=== PATIENT | male | born 1955 | race Caucasian/White ===

== ENCOUNTER → 2017-12-23 16:08 | Outpatient (CLI) | payer MEDICAID | END | disposition home or self-care (01) | LOC: D.RAD 10:15 | DX: R05 Cough (principal) ==

== ENCOUNTER 2018-03-10 12:27 | Inpatient (IN) | payer MEDICAID ==
[~2018-03-10] VITALS: Ht 188 cm; Wt 95.7 kg
--- NOTE | ~2018-03-10 | OP ---
PATIENT NAME: LIZZY SIMPSON MEDICAL RECORD: [id number] :57 LOCATION:[facility] D.CV07 ADMISSION DATE:03/15/18 SURGEON: RILEY ESPARZA MD DATE OF OPERATION: 03/15/2018 SURGEON: Riley Esparza MD ANESTHESIA: General endotracheal, Dr. Stearns and Dr. Willett. OPERATIONS PERFORMED: 1. Right thoracotomy and right upper lobe resection. 2. Right radical mediastinal lymphadenectomy. 3. Flexible fiberoptic bronchoscopy. PREOPERATIVE DIAGNOSIS: Neuroendocrine carcinoma, right upper lobe. POSTOPERATIVE DIAGNOSES: Neuroendocrine carcinoma, right upper lobe. An 8-mm tumor in the right upper lobe. There was also lymphadenopathy with calcification probably due to old histoplasmosis versus sarcoidosis. INDICATION FOR OPERATIONS: Neuroendocrine tumor, right upper lobe. FINDINGS OF THE OPERATION: 1. Tumor, right upper lobe. 2. Mediastinal lymphadenopathy. 3. Benign flexible fiberoptic bronchoscopy. ESTIMATED BLOOD LOSS: 150 mL. DESCRIPTION OF PROCEDURE: After informed consent, adequate preoperative medication evaluation, the patient was brought to the operating room, placed on the table in the supine position. The patient underwent flexible fiberoptic bronchoscopy and placement of a double-lumen tube. The patient was then turned in a left lateral decubitus position, protecting the pressure points and neurologic structures. The right chest was then prepped and draped in a sterile field, utilizing Betadine scrub, alcohol, and Betadine solution. A Betadine-impregnated drape was also used. A small right posterolateral thoracotomy incision was made and dissection carried down to the fascia. Hemostasis maintained with electrocautery. Fifth interspace was identified and opened. The chest was examined. There was immediate Ad lymphadenopathy with multiple large nodes. The tumor in the right upper lobe was not palpable. The fissure was then developed at the confluence of the minor and major fissure. Dissection carried down to a very large lymph node. Dissection was then carried more medially and the edge of the pulmonary artery identified. Attention was then turned toward the superior hilum. The hilum was incised anteriorly, superiorly and posteriorly. The pulmonary vein to the right upper lobe was then dissected free of surrounding structures and divided with an endovascular TACOS stapler. The middle and upper lobe vein was identified. The upper lobe tributaries were identified and the vein divided with a TACOS stapler. Attention was then turned towards the posterior fissure. This was developed with a TACOS stapler. The same was performed in between the middle and upper OPERATIVE REPORT [id number] LIZZY SIMPSON lobe. Dissection of the hilum was completed tracing the pulmonary artery into the middle and lower lobe. Attention was then turned posteriorly and the bronchus dissected to the upper lobe. The large lymph node in the hilum was dissected off the pulmonary artery and sent to pathology. The fissures were then completed anteriorly and posteriorly. The bronchus was then divided with an Endo-TACOS stapler after testing for inflation of the middle and lower lobes. The pathology returned tumor in the right upper lobe. The lymph nodes were benign with granulomas. Chest was irrigated with copious amounts of water and normal saline. The lymph node dissection was then carried out from the thoracic inlet at level 3 nodes. The level 4 nodes were removed behind the superior vena cava and paratracheally. The level 7 nodes were then dissected free as were 8 and 9. The chest was irrigated and hemostasis assured and two #36 chest tubes were placed, one anteriorly and superiorly, one posteriorly and inferiorly. Chest was again irrigated. Instrument and sponge counts were correct times 2. Chest closed in layers utilizing #2 Vicryl pericostal sutures, #1 Vicryl on the latissimus dorsi, 2-0 Vicryl on the subcutaneous tissue, and skin approximated with 3-0 subcuticular Vicryl. Sterile dressings were applied. The patient turned in the supine position and the endotracheal tube exchanged for a single-lumen tube. The patient underwent flexible fiberoptic bronchoscopy with no endobronchial bleeding and good closure of the stump with no narrowing of the bronchus intermedius. The patient tolerated the procedure well and was transferred to CV ICU in satisfactory condition. TRANSINT:[id number] Voice Confirmation ID: [id number] DOCUMENT ID: [id number] RILEY ESPARZA MD at 1234 CC: [id number] DICTATION DATE: 03/15/181908 RADIO REPORTER: 03/16/18 0309 ADM IN [place] [id number] [place] [id number]
--- NOTE | ~2018-03-10 | HP ---
PATIENT: LIZZY SIMPSON MEDICAL RECORD: [id number] ACCOUNT: [id number] LOCATION:[facility] D.CV07 : 57 ADMISSION DATE: 03/15/18 PCP: URBAN ESPARZA MD HISTORY AND PHYSICAL EXAMINATION NameLIZZY SIMPSON (62yo, M) ID# [id number]. Date/Time03/10/2018 11:08DFUVG26 1955Service Dept.[facility] ClinicProviderEDNEIL ESPARZA MDInsuranceMed Primary: [place] Insurance # : [id number] Employer Name : RETIRED Prescription: CMX - Member is eligible. Prescription: [employer] - Member is eligible. Chief Complaint Lung cancer Evaluate for pulmonary resection- RUL Patient's Care Team Referring Provider: ADAN LUO MD: [address] [place] [address], , Web Operations Lead: IRENE PERRY MD: [address] [place] [address], , Patient's Pharmacies [facility] [address], [facility] [address], , Vitals BP:148/78 sitting R arm 03/10/2018 11:18 am 150/80 sitting L arm 03/10/2018 11:18 amHR:62/reg 03/10/2018 11:18 amHt:6 ft 2 in 03/10/2018 11:15 amWt:215 lbs 03/10/2018 11:15 amBMI:27.6 03/10/2018 11:15 amAllergies Reviewed Allergies NKDAMedications Reviewed Medications amLODIPine 5 mg fpuymc08/28/18 filledCaremarkbenzonatate 200 mg jlilmgj98/02/18 filledCaremarkCarafate 100 mg/mL oral pwvyvhkqiz37/14/18 filledCaremarkcloNIDine HCl 0.2 mg pyxgul80/03/18 filledCaremarkcyclobenzaprine 10 mg iskusk99/03/18 filledCaremarkdoxycycline hyclate 100 mg cdessyq92/14/18 filledCaremarkFlucelvax Quad [id number] (PF) 60 mcg (15 mcg x 4)/0.5 mL IM syringe ADM 0.5ML IM UTD08/04/17 filledCaremarkgabapentin 600 mg gwqspe96/03/18 filledCaremarklevoFLOXacin 500 mg /25/18 filledCaremarkolmesartan 40 mg-hydrochlorothiazide 25 mg ndrmyk43/28/18 filledCaremarkpantoprazole 40 mg tablet,delayed onaykzb75/28/18 filledCaremarkpotassium chloride ER 20 mEq tablet,extended release(part/cryst)02/10/18 filledCaremarkpredniSONE 20 mg wtqokw89/25/18 filledCaremarkpromethazine 6.25 mg-codeine 10 mg/5 mL syrup01/23/18 filledCaremarkProblems Reviewed Problems Malignant tumor of lung, Right Fatigue Family History Reviewed Family History Father- Pulmonary emphysemaMother- Cardiac pacemaker in situSocial History Reviewed Social History Cardiology and General Family history of heart disease?: N Smoking Status: Former smoker (Notes: QUIT 21 YEARS AGO) HISTORY AND PHYSICAL [id number] LIZZY SIMPSON Non-smoker High blood pressure: Y Exercise level: Occasional Diabetes: N Alcohol intake: Occasional Diet: Regular Occupation: MOTEL KEEPER Marital status: Chewing tobacco: (Notes: FORMER) Guns present in home: Y Surgical History Reviewed Surgical History GALLBLADDER REMOVAL OF MELANOMA FROM NOSE AND BACK Past Medical History Reviewed Past Medical History Cancer: Y - MELANOMA BACK/NOSE High Blood Pressure: Y Join t Pain or Swelling: Y Shortness of Breath: Y Notes: CHRONIC FATIGUE Documents for Discussion Discussed the following documents: NM, WHOLE BODY SCAN - 03/09/18 Notes - normal scan PATHOLOGY STUDY - 02/23/18 Notes - RUL PULM NODULE CT GUIDED NEEDLE BIOPSY (PROC) - 02/23/18 PET, SKULL BASE TO MID-THIGH - 01/27/18 Notes - nneuroendocrine tumor right upper lobe Questionable mediastinal lymphadenopathy CT, CHEST, W/O CONTRAST - 01/09/18 Notes - small lesion right upper lobe carcinoid tumor ONCOLOGY CONSULT NOTE - ADAN LUO MD - 03/02/18 ONCOLOGY CONSULT NOTE - ADAN LUO MD - 03/02/18 HISTORIC MEDICAL RECORDS - 01/17/18 Screening None recorded. HPI ccarcinoid tumor right upper lobe ROS Patient reports cough but reports no wheezing, no shortness of breath, and no coughing up blood. He reports no fever, no night sweats, no significant weight gain, no significant weight loss, and no exercise intolerance. He reports no dry eyes, no irritation, and no vision change. He repo r ts no difficulty hearing and no ear pain. He reports no frequent nosebleeds and no nose/sinus problems. He reports no sore throat, no bleeding gums, no snoring, no dry mouth, no mouth ulcers, no oral abnormalities, and no teeth problems. He reports no jug u lar vein distension and no swollen glands. He reports no chest pain, no arm pain on exertion, no shortness of breath when walking, no shortness of breath when lying down, no palpitations, and no known heart murmur. He reports no abdominal pain, no vomitin g , normal appetite, no diarrhea, not vomiting blood, no nausea, and no constipation. He reports no incontinence, no difficulty urinating, no hematuria, and no increased frequency. He reports no muscle aches, no muscle weakness, no arthralgias/joint pain, n o back HISTORY AND PHYSICAL [id number] EAST,LIZZY DANIELITO pain, and no swelling in the extremities. He reports no abnormal mole, no jaundice, and no rashes. He reports no loss of consciousness, no weakness, no numbness, no seizures, no dizziness, and no headaches. He reports no depression, no sleep disturb ances, feeling safe in relationship, and no alcohol abuse. He reports no fatigue. He reports no swollen glands and no bruising. He reports no runny nose, no sinus pressure, no itching, no hives, and no frequent sneezing. ROS as noted in the HPI Physical Exam Patient is a 62-year-old male. Constitutional: General Appearance well nourished and developed and healthy-appearing. Level of Distress NAD. Ambulation ambulating normally. Cardiovascular: Apical Impulse not displaced or no thrill. Heart Auscultation normal s1 and s2; no murmurs, rubs, or gallops; and RRR. Arterial Pulses no abdominal aorta bruits, femoral bruits, or popliteal bruits and 2+ bilateral, carotid 2+ bilateral, femoral 2+ bilateral, popliteal 2+ bilateral, and dorsalis p alonso 2+ bilateral. Edema no edema or varicosities. Lungs: Repiratory Effort no dyspnea. Percussion no hyperresonance or dullness or flatness. Auscultation no wheezing, rhonchi, or rales / crackles and breathing sounds normal, good air movement, and CTA except as noted. Abdomen: Bowl Sounds normal. Inspection and Palpation no tenderness, guarding, masses, or rebound tenderness and soft and non-distended. Liver non-tender and no hepatomegaly. Spleen non-tender and no splenomegaly. Hernia none palpable. Musculoskeletal System: Gait And Stance normal gait and stance. Digits and Nails normal nails and no cyanosis. Neurologic: Cranial Nerves grossly intact. Reflexes DTRs 2+ bilaterally throughout. Sensation grossly intact. Lymph Nodes: Lymph Nodes no cervical LAD, supraclavicular LAD, axillary LAD, or inguinal LAD. Eyes: Lids and Conjunctivae no discharge or pallor and non-injected. Pupils PERRLA. Cornea grossly intact. EOM EOMI. Lens clear. Sclerae non-icteric. Neck: Neck no masses, enlarged lymph nodes, or carotid bruits and supple and trachea midline. Thyroid no enlargement or nodules and non-tender. Skin: Inspection and Palpation no rash, lesions, ulcers, jaundice, or abnormal nevi; ccarcinoma removed from bridge of nose. Assessment / Plan carcinoid tumor right upper lobe 1. Malignant tumor of lung - Right C34.90: Malignant neoplasm of unspecified part of unspecified bronchus or lung Discussion Notes the patient has some questionable mediastinal lymph nodes and I think are probably related to inflammation. I think he would benefit from open right upper lobe resection and mediastinal lymphadenectomy. Have discussed his disease process with him and his in detail HISTORY AND PHYSICAL [id number] LIZZY SIMPSON as well as the alternative methods of treatment. We discussed pulmonary resection and the expected benefits and risk which include bleeding, infection, stroke, and , and the imponderables. He understands all of the above and wishes to proceed with planned procedure scheduled for surgery march URBAN ESPARZA MD at 1234 CC: [id number] DICTATION DATE: 03/10/18 1100 BUILD ENGINEER: TAMMIE 03/15/18 [address] [facility] [place] [id number] [place] [address]
--- NOTE | ~2018-03-10 | EC ---
PATIENT:LIZZY SIMPSON DATE OF SERVICE: SEX: M MEDICAL RECORD: [id number] DATE OF : 57 LOCATION:D.CVI AGE OF PATIENT: 62 ADMISSION DATE: 03/15/18 REFERRING PHYSICIAN: INTERPRETING PHYSICIAN: MONCHO AN MD ECHOCARDIOGRAM REPORT ECHO CHARGES 4 ECHO COMPLETE Date: 03/10 CLINICAL DIAGNOSIS: LUNG CANCER/SOB ECHOCARDIOGRAPHIC MEASUREMENTS (adult normal given) AC root (d.<3.7cm) 3.1 cm LV Septum d (<1.2 cm> 1.3 cm Valve Excursion 2.0 cm LV Septum (systole) 2.0 cm Left Atria (s.<4.0cm> 4.3 cm LVPW d(<1.2cm) 1.4 cm RV (d.<2.3cm) 2.8 cm LVPW (sytole) 1.9 cm LV diastole(<5.6CM) 5.6 cm MV E-F(>70mm/sec) cm LV systole 3.0 cm LVOT Diameter 2.0 cm MV exc.(>10mm) cm Est.ejection fraction (50-75%) % DOPPLER: LVIT cm/sec A 44.0 cm/sec E 94.0 cm/sec LA cm/sec RVSP 37.0 mmHg LVOT 101 cm/sec AOP1/2T m/s Asc. Ao 150 cm/sec RVOT 55.0 cm/sec RA cm/sec PA 109 cm/sec AV Gradient Peak 9.0 mmHg AV Mean 4.6 mmHg AV Area 2.2 cm MV Gradient Peak 5.4 mmHg MV Mean 1.6 mmHg MV Area cm COMMENTS: After School Tutor: Stefania NIX [place] Wind Technician: 1 Dr. An TAPE# PACS Pericardial Effusion N DATE OF SERVICE: 03/10/2018 FINDINGS: 1. Left ventricular chamber size is mildly dilated. Left ventricular systolic function is preserved. Overall ejection fraction estimated at 55%. 2. Left atrium is enlarged at 4.1 cm. Right atrium and right ventricular chamber sizes are as well mildly dilated. 3. Valvular structures have normal structure and motion. 4. Doppler interrogation reveals mild mitral regurgitation, mild tricuspid regurgitation. No other valvular insufficiency or stenosis. Pulmonary systolic ECHOCARDIOGRAM REPORT [id number] LIZZY SIMPSON pressure is normal, estimated 37 mmHg. 5. No evidence of pericardial effusion or left ventricular thrombus. TRANSINT:[id number] Voice Confirmation ID: [id number] DOCUMENT ID: [id number] MONCHO AN MD at 1843 CC: [id number] DICTATION DATE: 03/10/18 1434 FRUIT PACKER FACE AND FILL: 03/10/18 1507 [address] [place] [id number] [place] [address]
[2018-03-10] MEDS ORDERED: PROTONIX40 MG PO (14:35)
[2018-03-10] MEDS ORDERED: NORVASC5 MG PO (14:35)
[2018-03-10] MEDS ORDERED: K-DUR20 MEQ PO (14:35)
[2018-03-10] MEDS ORDERED: BENICAR HCT 40-1 TAB PO (14:37)
[2018-03-15] VITALS (18 sets, daily range): BP systolic 116–162; BP diastolic 53–87; BMI 27.0; BMI 27.3
[2018-03-15 10:29] LABS: ALBUMIN 3.6 g/dL (3.4-5.0); ALKALINE PHOSPHATASE 70 U/L (46-116); ALT (SGPT) 31 U/L (10-68); BILIRUBIN - TOTAL 0.83 mg/dL (0.2-1.3); CALC OSMOLALITY 278 mosm/kg (275-300); CALCIUM 8.4 mg/dL (8.5-10.1); CHLORIDE - SERUM 105 mmol/L (98-107); CREATININE - SERUM 0.9 mg/dL (0.6-1.3); GLUCOSE 96 mg/dL (74-106); POTASSIUM - SERUM 3.7 mmol/L (3.5-5.1); SODIUM 140 mmol/L (136-145); UREA NITROGEN 13 mg/dL (7-18); eGFR NON AFRICAN AMERICAN > 90 mL/min (90-120)
[2018-03-15 10:30] LABS: HEMATOCRIT 44.7 % (42.0-54.0); HEMOGLOBIN 15.7 g/dL (13.5-17.5); MCH 30.6 pg (26.0-34.0); MCHC 35.1 g/dL (31.0-37.0); MCV 87.1 fL (80.0-100.0); MEAN PLATELET VOLUME 10.4 fL (7.4-10.4); RBC 5.13 10x6/uL (4.20-6.10); RDW 13.2 % (11.5-14.5); WBC 6.6 10x3/uL (4.8-10.8)
[2018-03-15 11:11] LABS: INR 0.97 (0.85-1.17); PROTIME 12.5 SECONDS (11.6-15.0)
[2018-03-15 11:34] LABS: APPEARANCE CLEAR (CLEAR); BILIRUBIN NEGATIVE (NEGATIVE); COLOR YELLOW (YELLOW); GLUCOSE NEGATIVE (NEGATIVE); KETONE NEGATIVE (NEGATIVE); NITRITE NEGATIVE (NEGATIVE); PROTEIN NEGATIVE (NEGATIVE); SPECIFIC GRAVITY 1.005 (1.005-1.020); UROBILINOGEN NORMAL (NORMAL)
[2018-03-16] VITALS (41 sets, daily range): BP systolic 117–155; BP diastolic 54–88; Ht 188 cm; Wt 95.7 kg
[2018-03-16 06:23] LABS: HEMATOCRIT 40.9 % (42.0-54.0); HEMOGLOBIN 13.9 g/dL (13.5-17.5); MCH 30.1 pg (26.0-34.0); MCV 88.5 fL (80.0-100.0); MEAN PLATELET VOLUME 10.4 fL (7.4-10.4); RBC 4.62 10x6/uL (4.20-6.10); RDW 13.6 % (11.5-14.5)
[2018-03-16 06:30] LABS: WBC 10.2 10x3/uL (4.8-10.8)
[2018-03-16 06:41] LABS: ALKALINE PHOSPHATASE 51 U/L (46-116); ALT (SGPT) 29 U/L (10-68); BILIRUBIN - TOTAL 1.04 mg/dL (0.2-1.3); CALC OSMOLALITY 284 mosm/kg (275-300); CALCIUM 7.5 mg/dL (8.5-10.1); CARBON DIOXIDE 27.1 mmol/L (21.0-32.0); CHLORIDE - SERUM 108 mmol/L (98-107); CREATININE - SERUM 0.9 mg/dL (0.6-1.3); GLUCOSE 108 mg/dL (74-106); PROTEIN - SERUM 6.1 g/dL (6.4-8.2); SODIUM 142 mmol/L (136-145); UREA NITROGEN 15 mg/dL (7-18); eGFR NON AFRICAN AMERICAN > 90 mL/min (90-120)
[2018-03-17] VITALS (22 sets, daily range): BP systolic 117–162; BP diastolic 56–90
[2018-03-17 06:31] LABS: ALBUMIN 2.6 g/dL (3.4-5.0); ALKALINE PHOSPHATASE 49 U/L (46-116); ALT (SGPT) 25 U/L (10-68); BILIRUBIN - TOTAL 0.89 mg/dL (0.2-1.3); CALCIUM 7.7 mg/dL (8.5-10.1); CARBON DIOXIDE 28.5 mmol/L (21.0-32.0); CHLORIDE - SERUM 106 mmol/L (98-107); GLUCOSE 123 mg/dL (74-106); PROTEIN - SERUM 5.9 g/dL (6.4-8.2); SODIUM 138 mmol/L (136-145); eGFR NON AFRICAN AMERICAN 81 mL/min (90-120)
[2018-03-17 06:32] LABS: CALC OSMOLALITY 275 mosm/kg (275-300); POTASSIUM - SERUM 3.3 mmol/L (3.5-5.1); UREA NITROGEN 10 mg/dL (7-18)
[2018-03-17 07:27] LABS: HEMATOCRIT 38.4 % (42.0-54.0); HEMOGLOBIN 13.4 g/dL (13.5-17.5); MCH 30.5 pg (26.0-34.0); MCHC 34.9 g/dL (31.0-37.0); MCV 87.5 fL (80.0-100.0); MEAN PLATELET VOLUME 10.2 fL (7.4-10.4); RBC 4.39 10x6/uL (4.20-6.10); RDW 13.3 % (11.5-14.5); WBC 10.8 10x3/uL (4.8-10.8)
[2018-03-18] VITALS (24 sets, daily range): BP systolic 108–190; BP diastolic 50–98
[2018-03-18 05:50] LABS: HEMOGLOBIN 12.7 g/dL (13.5-17.5); MCH 30.3 pg (26.0-34.0); MCHC 34.3 g/dL (31.0-37.0); MCV 88.3 fL (80.0-100.0); MEAN PLATELET VOLUME 10.1 fL (7.4-10.4); RBC 4.19 10x6/uL (4.20-6.10); RDW 13.5 % (11.5-14.5); WBC 10.4 10x3/uL (4.8-10.8)
[2018-03-18 06:23] LABS: ALBUMIN 2.3 g/dL (3.4-5.0); ALKALINE PHOSPHATASE 47 U/L (46-116); ALT (SGPT) 26 U/L (10-68); BILIRUBIN - TOTAL 0.71 mg/dL (0.2-1.3); CALC OSMOLALITY 268 mosm/kg (275-300); CALCIUM 7.6 mg/dL (8.5-10.1); CARBON DIOXIDE 29.6 mmol/L (21.0-32.0); CHLORIDE - SERUM 102 mmol/L (98-107); CREATININE - SERUM 0.9 mg/dL (0.6-1.3); GLUCOSE 120 mg/dL (74-106); POTASSIUM - SERUM 3.3 mmol/L (3.5-5.1); PROTEIN - SERUM 5.9 g/dL (6.4-8.2); SODIUM 135 mmol/L (136-145); UREA NITROGEN 8 mg/dL (7-18); eGFR NON AFRICAN AMERICAN > 90 mL/min (90-120)
[2018-03-19] VITALS (25 sets, daily range): BP systolic 92–163; BP diastolic 46–84
[2018-03-19 05:44] LABS: HEMATOCRIT 34.7 % (42.0-54.0); HEMOGLOBIN 12.1 g/dL (13.5-17.5); MCH 30.4 pg (26.0-34.0); MCHC 34.9 g/dL (31.0-37.0); MCV 87.2 fL (80.0-100.0); MEAN PLATELET VOLUME 10.2 fL (7.4-10.4); RBC 3.98 10x6/uL (4.20-6.10); RDW 13.3 % (11.5-14.5); WBC 8.8 10x3/uL (4.8-10.8)
[2018-03-19 05:56] LABS: ALBUMIN 2.3 g/dL (3.4-5.0); ALKALINE PHOSPHATASE 47 U/L (46-116); BILIRUBIN - TOTAL 0.61 mg/dL (0.2-1.3); CALC OSMOLALITY 272 mosm/kg (275-300); CALCIUM 7.6 mg/dL (8.5-10.1); CHLORIDE - SERUM 101 mmol/L (98-107); GLUCOSE 131 mg/dL (74-106); POTASSIUM - SERUM 3.1 mmol/L (3.5-5.1); PROTEIN - SERUM 5.9 g/dL (6.4-8.2); SODIUM 136 mmol/L (136-145); UREA NITROGEN 10 mg/dL (7-18); eGFR NON AFRICAN AMERICAN 81 mL/min (90-120)
[2018-03-19 05:57] LABS: ALT (SGPT) 36 U/L (10-68)
[2018-03-20] VITALS (22 sets, daily range): BP systolic 115–168; BP diastolic 62–96
[2018-03-20 06:05] LABS: HEMATOCRIT 35.3 % (42.0-54.0); HEMOGLOBIN 12.2 g/dL (13.5-17.5); MCH 30.1 pg (26.0-34.0); MCHC 34.6 g/dL (31.0-37.0); MCV 87.2 fL (80.0-100.0); RBC 4.05 10x6/uL (4.20-6.10); RDW 13.3 % (11.5-14.5)
[2018-03-20 06:35] LABS: ALBUMIN 2.2 g/dL (3.4-5.0); ALKALINE PHOSPHATASE 45 U/L (46-116); BILIRUBIN - TOTAL 0.52 mg/dL (0.2-1.3); CALC OSMOLALITY 277 mosm/kg (275-300); CALCIUM 7.6 mg/dL (8.5-10.1); CARBON DIOXIDE 32.1 mmol/L (21.0-32.0); CHLORIDE - SERUM 102 mmol/L (98-107); GLUCOSE 118 mg/dL (74-106); POTASSIUM - SERUM 3.4 mmol/L (3.5-5.1); PROTEIN - SERUM 5.9 g/dL (6.4-8.2); SODIUM 140 mmol/L (136-145); UREA NITROGEN 8 mg/dL (7-18)
[2018-03-20 06:40] LABS: ALT (SGPT) 54 U/L (10-68); CREATININE - SERUM 0.7 mg/dL (0.6-1.3); eGFR NON AFRICAN AMERICAN > 90 mL/min (90-120)
[2018-03-21] VITALS (9 sets, daily range): BP systolic 125–154; BP diastolic 61–80
[2018-03-21 05:54] LABS: HEMATOCRIT 35.9 % (42.0-54.0); HEMOGLOBIN 12.4 g/dL (13.5-17.5); MCH 30.2 pg (26.0-34.0); MCHC 34.5 g/dL (31.0-37.0); MCV 87.3 fL (80.0-100.0); MEAN PLATELET VOLUME 9.7 fL (7.4-10.4); RBC 4.11 10x6/uL (4.20-6.10); RDW 13.4 % (11.5-14.5); WBC 7.5 10x3/uL (4.8-10.8)
[2018-03-21 06:06] LABS: ALBUMIN 2.4 g/dL (3.4-5.0); ALKALINE PHOSPHATASE 54 U/L (46-116); ALT (SGPT) 57 U/L (10-68); BILIRUBIN - TOTAL 0.49 mg/dL (0.2-1.3); CALC OSMOLALITY 272 mosm/kg (275-300); CARBON DIOXIDE 32.4 mmol/L (21.0-32.0); CHLORIDE - SERUM 101 mmol/L (98-107); CREATININE - SERUM 0.8 mg/dL (0.6-1.3); GLUCOSE 114 mg/dL (74-106); POTASSIUM - SERUM 3.5 mmol/L (3.5-5.1); PROTEIN - SERUM 6.2 g/dL (6.4-8.2); SODIUM 137 mmol/L (136-145); UREA NITROGEN 7 mg/dL (7-18); eGFR NON AFRICAN AMERICAN > 90 mL/min (90-120)
[2018-03-21] MEDS ORDERED: ASPIRIN325 MG PO (08:07)
[2018-03-21] MEDS ORDERED: PERCOCET 10/3251 TA1 PO (08:10)
== END 2018-03-21 10:00 | disposition home or self-care (01) | DRG 164 ==
LOC: D.ECHO 12:27 → D.CVICU 13:00 → EDSTATUS 13:00 → D.RT 15:00 → D.CVICU 03-14 13:00 → D.SDCHOLD 03-15 08:18 → D.CVICU 03-15 09:30
PROVIDERS: Internal Medicine Cardiovascular Disease
PROC: 0BTC0ZZ Resection of Right Upper Lung Lobe, Open Approach (ICD-10-PCS; principal; 2018-03-15 10:30)
PROC: 07B70ZZ Excision of Thorax Lymphatic, Open Approach (ICD-10-PCS; 2018-03-15 10:30)
DX: C7A.090 Malignant carcinoid tumor of the bronchus and lung (principal); C7B.01 Secondary carcinoid tumors of distant lymph nodes; J95.812 Postprocedural air leak; J90 Pleural effusion, not elsewhere classified; J93.9 Pneumothorax, unspecified; C7A.8 Other malignant neuroendocrine tumors; R53.83 Other fatigue; R59.1 Generalized enlarged lymph nodes; I10 Essential (primary) hypertension

== ENCOUNTER → 2018-03-28 10:01 | Outpatient (CLI) | payer MEDICAID ==
[2018-03-16 11:18] VITALS: BMI 27.1
[~2018-03-28 10:01] MED LIST: ASPIRIN325 MG PO; BENICAR HCT 40-1 TAB PO; K-DUR20 MEQ PO; NORVASC5 MG PO; PERCOCET 10/3251 TA1 PO; PROTONIX40 MG PO
== END | disposition home or self-care (01) ==
LOC: D.RAD 08:00
DX: J91.8 Pleural effusion in other conditions classified elsewhere (principal)

== ENCOUNTER → 2018-04-27 09:57 | Outpatient (CLI) | payer MEDICAID ==
[2018-03-16 11:18] VITALS: BMI 27.1
== END | disposition home or self-care (01) ==
LOC: D.RAD 09:15
DX: J91.8 Pleural effusion in other conditions classified elsewhere (principal); C34.90 Malignant neoplasm of unspecified part of unspecified bronchus or lung

== ENCOUNTER 2018-06-13 08:56 | Outpatient (CLI) | payer MEDICAID ==
[~2018-06-13] VITALS: Ht 188 cm; Wt 95.5 kg
[2018-06-13 09:14] LABS: BASOPHILS 0.4 % (0-2); EOSINOPHILS 6.4 % (0-7); HEMATOCRIT 44.2 % (42.0-54.0); HEMOGLOBIN 15.6 g/dL (13.5-17.5); IMMATURE GRANULOCYTES 0.2 % (0-5); LYMPHOCYTES 25.9 % (15-50); MCH 30.3 pg (26.0-34.0); MCHC 35.3 g/dL (31.0-37.0); MCV 85.8 fL (80.0-100.0); MEAN PLATELET VOLUME 10.6 fL (7.4-10.4); MONOCYTES 7.7 % (2-11); NEUTROPHILS 59.4 % (40-80); PLATELET COUNT 215 10x3/uL (130-400); RBC 5.15 10x6/uL (4.20-6.10); WBC 5.5 10x3/uL (4.8-10.8)
[2018-06-13 09:19] LABS: APTT 31.9 SECONDS (22.8-39.4); INR 0.94 (0.85-1.17); PROTIME 12.1 SECONDS (11.6-15.0)
[2018-06-13] MEDS ORDERED: ZANTAC300 MG PO (09:29)
[2018-06-13] MEDS ORDERED: PROBIOTIC BLEN1 EACH (09:30)
[2018-06-13 09:34] VITALS: BP 141/82; Ht 188 cm; Wt 95.5 kg
[2018-06-14 15:27] LABS: FUNGUS STAIN Final report (())
[2018-06-14 16:16] LABS: ACID FAST SMEAR Negative (()); AFB SPECIMEN PROCESSING Concentration (())
== END 2018-06-13 15:06 | disposition home or self-care (01) ==
LOC: D.OPS 08:56
PROVIDERS: Internal Medicine Pulmonary Disease
DX: C7A.8 Other malignant neuroendocrine tumors (principal); R59.0 Localized enlarged lymph nodes; K21.9 Gastro-esophageal reflux disease without esophagitis; R05 Cough; Z87.891 Personal history of nicotine dependence; J90 Pleural effusion, not elsewhere classified; I27.20 Pulmonary hypertension, unspecified

== ENCOUNTER → 2018-08-21 09:43 | Outpatient (CLI) | payer MEDICAID ==
[2018-06-13 09:34] VITALS: BMI 27.0
[~2018-08-21 09:43] MED LIST changes: +PROBIOTIC BLEN1 EACH; +ZANTAC300 MG PO
[2018-08-24 03:09] LABS: IMMUNOGLOBULIN E 76 IU/mL (0-100)
[2018-08-25 19:10] LABS: FUNGAL - ASP FLAVUS Negative (Neg:<1:1); FUNGAL - ASP NIGER Negative (Neg:<1:1); FUNGAL - ASPER FUMIGATUS Negative (Neg:<1:1)
== END | disposition home or self-care (01) ==
LOC: D.LAB 09:43 → D.RT 10:00
PROVIDERS: Internal Medicine Pulmonary Disease
DX: J68.3 Other acute and subacute respiratory conditions due to chemicals, gases, fumes and vapors (principal); J30.9 Allergic rhinitis, unspecified; B39.1 Chronic pulmonary histoplasmosis capsulati

== ENCOUNTER → 2019-01-19 12:32 | Outpatient (CLI) | payer MEDICAID ==
[2018-06-13 09:34] VITALS: BMI 27.0
== END | disposition home or self-care (01) ==
LOC: D.CT 12:32
PROVIDERS: ATTEND Internal Medicine Cardiovascular Disease
DX: C34.90 Malignant neoplasm of unspecified part of unspecified bronchus or lung (principal)

== ENCOUNTER → 2019-12-10 12:14 | Outpatient (CLI) | payer MEDICAID ==
[2018-06-13 09:34] VITALS: BMI 27.0
== END | disposition home or self-care (01) ==
LOC: D.LABREF 12:14
PROVIDERS: ATTEND Internal Medicine Pulmonary Disease
DX: Z11.59 Encounter for screening for other viral diseases (principal)

== ENCOUNTER → 2019-12-12 10:20 | Outpatient (CLI) | payer MEDICAID ==
[2018-06-13 09:34] VITALS: BMI 27.0
== END | disposition home or self-care (01) ==
LOC: D.RT 12-04 08:00
PROVIDERS: ATTEND Internal Medicine Pulmonary Disease
DX: J68.3 Other acute and subacute respiratory conditions due to chemicals, gases, fumes and vapors (principal)

== ENCOUNTER → 2020-01-21 08:16 | Outpatient (CLI) | payer MEDICAID ==
[2018-06-13 09:34] VITALS: BMI 27.0
== END | disposition home or self-care (01) ==
LOC: D.CT 01-14 11:30
PROVIDERS: ATTEND Internal Medicine Cardiovascular Disease
DX: R59.0 Localized enlarged lymph nodes (principal); R06.00 Dyspnea, unspecified

== ENCOUNTER → 2020-10-06 14:04 | Outpatient (CLI) | payer MEDICAID ==
[2018-06-13 09:34] VITALS: BMI 27.0
== END | disposition home or self-care (01) ==
LOC: D.LAB 14:04
PROVIDERS: ATTEND Internal Medicine Pulmonary Disease
DX: Z11.52 Encounter for screening for COVID-19 (principal)

== ENCOUNTER → 2020-10-10 08:40 | Outpatient (CLI) | payer MEDICAID ==
[2018-06-13 09:34] VITALS: BMI 27.0
== END | disposition home or self-care (01) ==
LOC: D.RT 08:40
PROVIDERS: ATTEND Internal Medicine Pulmonary Disease
DX: Z11.52 Encounter for screening for COVID-19 (principal); Z20.822 Contact with and (suspected) exposure to COVID-19